=== PATIENT | male | born 1965 | race Caucasian/White ===

== ENCOUNTER 2017-03-04 10:10 | Inpatient (IN) | payer OTHER ==
--- NOTE | ~2017-03-04 | HP ---
Unit #: [id number] #: [id number] Patient: TANIA RANGEL [id number] [address] [address] [id number] MR#: [id number] NAME: TANIA RANGEL. ROOM: 28152 Age: 51 Sex: M Admission Date: 03/04/2017 : 1965 Attending Physician: Marina Lambert M.D. HISTORY AND PHYSICAL CHIEF COMPLAINT Abscess to left buttock. HISTORY OF PRESENT ILLNESS The patient is a 51-year-old male with a history of diabetes and noncompliance with medications who presented to the emergency room with an abscess to the left buttock. The patient stated that he has been having boils in the past that rupture and then go away within two days. However, this time, the patient had a boil that ruptured four days ago, and it has been gradually worsening to the point that he is having a lot of pain, swelling, and tenderness, which made him come to the hospital. The patient is not on any medication for diabetes. The patient was diagnosed with diabetes 14 years ago. He took metformin twice a day for two years, and then he stopped taking it. The patient denies any history of MRSA or any history of drainage in the past. He denies any fever, chills, nausea, or vomiting. PAST MEDICAL HISTORY Diabetes. PAST SURGICAL HISTORY None. HOME MEDICATIONS None. ALLERGIES Penicillin and latex. SOCIAL HISTORY He stated he stopped smoking three years ago. He drinks half of a quart of alcohol each day. He denies any illicit drug abuse. FAMILY HISTORY Diabetes. REVIEW OF SYSTEMS A 14-point review of systems was performed and only pertinent positive findings are as described above. The remaining are negative. PHYSICAL EXAMINATION GENERAL: Patient is lying in bed not in acute distress. VITAL SIGNS: Temperature 98.3, pulse 80, respiratory rate 16, blood pressure 127/77, and saturating 100% on room air. Unit #: [id number] #: [id number] Patient: TANIA RANGEL HEENT: Head atraumatic, normocephalic. Pupils equal, round, and reactive to light and accommodation. Extraocular movements are intact. Dry mucous membranes. NECK: Supple. LUNGS: Decreased air entry at the bases. HEART: Regular rate and rhythm. ABDOMEN: Soft. Positive bowel sounds. EXTREMITIES: No cyanosis, no clubbing. BUTTOCKS: Patient has large surrounding indurated cellulitis with minimal point of fluctuation at the left buttock draining minimal purulent drainage. NEUROLOGIC: Alert, awake, and oriented. No gross focal motor deficit. DIAGNOSTIC STUDIES LABORATORY: WBC 15.8, hemoglobin 13.6, hematocrit 41.2, and platelets 239,000. Sodium 134, potassium 3.5, chloride 98, bicarb 23, glucose 260, BUN 16, and creatinine 0.7. ASSESSMENT 1. Abscess of the left buttock. 2. Cellulitis. 3. Uncontrolled diabetes. 4. Sepsis. PLAN Admit the patient to inpatient with telemetry. Patient will be started on IV antibiotics with clindamycin 300 IV q.8. Patient will have Accu-Cheks a.c. and at bedtime and continue with low-dose sliding scale. Patient will get IV fluids with normal saline at 100 mL/hour. Patient will be evaluated by [facility], and Dr. Vargas is present at the time of evaluating the patient. Will follow the recommendations. DVT prophylaxis. Tobacco cessation. Further recommendations will follow. Dictated by Lucía Reilly TD: 03/04/2017 15:30 JOB #: [id number] HISTORY AND PHYSICAL Page 1 of 1 X MARINA LAMBERT MD X HISTORY AND PHYSICAL
--- NOTE | ~2017-03-04 | DS ---
Unit #: [id number] #: [id number] Patient: TANIA RANGEL [id number] [address] [place], [place] [address] [id number] MR#: [id number] NAME: TANIA RANGEL. ROOM: 239 Age: 51 Sex: M Admission Date: 03/04/2017 : 1965 Discharge Date: 03/07/2017 Attending Physician: Chilo Arnold M.D. Primary Care Physician: No Primary Care Physician DISCHARGE SUMMARY REASON FOR ADMISSION Right buttock abscess/cellulitis. Sepsis present on admission. HISTORY OF PRESENT ILLNESS/HOSPITAL COURSE The patient is a very pleasant, 51-year-old male who presented secondary to right buttock pain and/or cellulitis. Upon initial evaluation and exam, it was noted he had a fairly large abscess, necrotic in nature over his buttock area. Subsequently, we admitted the patient, placed him on med/surg floor. Consultation was placed to [facility]. Decision was made for incision, drainage, as well as debridement of the abscess of the right buttock area. He was initially placed on IV antibiotics on the initial part of his hospital stay. Please see their procedure note for complete details. Postoperatively, he underwent routine dressing change as well as routine packing. Surgical Services have seen and evaluated the patient and felt as though he is stable for discharge from their standpoint. At the rehab, Dakin b.i.d. dressings were recommended with appropriate packing. Office appointment at the wound clinic at [place] in approximately 10 to 14 days. In regards to the patient's prior history of diabetes, his hemoglobin A1C this hospital admission was 10.9%. He states that secondary to lack of insurance, he was unable to afford many of his medications. Therefore, at the time of discharge, we resumed Amaryl, Metformin as well as Januvia. His blood sugars have decreased significantly. We also had Nutrition come evaluate and provide diabetic teaching while here. In regards to his antibiotic regimen, ID Services were consulted. [facility] saw and evaluated the patient. His antibiotics at the time of discharge are yet to be determined by their service. Once, we have final recommendations from ID for antibiotic regimen, the patient will be transitioned to rehab later this afternoon. FINAL DISCHARGE DIAGNOSIS 1. Right buttock abscess status post I and D. 2. Diabetes poorly controlled. Hemoglobin A1C 10.9%. 3. Anemia. Baseline hemoglobin 11.4. FINAL DISCHARGE MEDICATIONS 1. Lortab 7.5/325 mg one tablet p.o. q.4 p.r.n. #30. 2. Amaryl 2 mg p.o. b.i.d. with meals. Unit #: [id number] #: [id number] Patient: TANIA RANGEL 3. Januvia 50 mg p.o. daily. 4. Metformin 500 mg p.o. b.i.d. 5. Protonix 40 mg p.o. daily. Please note antibiotics will be determined by Infectious Disease Services after they see and evaluate the patient later this afternoon. DISCHARGE DISPOSITION To rehab. DISCHARGE CONDITION Stable. Dictated by... Chilo Arnold M.D. MARIAMA/anusha TD: 03/07/2017 12:21 JOB #: [id number] DISCHARGE SUMMARY Page 1 of 1 X Chilo Arnold MD X DISCHARGE SUMMARY
--- NOTE | ~2017-03-04 | OR ---
Unit #: [id number] #: [id number] Patient: TANIA RANGEL [id number] [address] [place], [place] [address] [id number] MR#: [id number] NAME: TANIA RANGEL. ROOM: 321 Date of Procedure: 03/04/2017 Admission Date: 03/04/2017 Surgeon: Jeff Vargas M.D. : 1965 Attending Physician: Chilo Arnold M.D. OPERATIVE REPORT PREOPERATIVE DIAGNOSIS Necrotic abscess, right buttock. POSTOPERATIVE DIAGNOSIS Necrotic abscess, right buttock. PROCEDURES PERFORMED Incision and drainage of necrotic abscess, right buttock with sharp excisional debridement of skin and subcutaneous tissue 10 x 15 cm area. ANESTHESIA General LMA anesthesia. FINDINGS The patient had necrotic skin and subcutaneous tissue and a 10 x 15 cm area of the right buttock. This was sharply debrided back to viable tissue. SPECIMENS Sent to microbiology and pathology. COMPLICATIONS None apparent. CONDITION The patient tolerated the procedure well. INDICATIONS FOR PROCEDURE The patient is a 51-year-old white male, who presented with a history of diabetes. He presented with an abscess of the right buttock for the last 5 days. He has obvious necrosis of the skin. He presents at this time for incision, drainage, and debridement of the right buttock abscess. DESCRIPTION OF PROCEDURE After obtaining informed consent as well as receiving scheduled antibiotics, the patient was brought to the operating room and after adequate general LMA anesthesia was obtained, he was very carefully placed into the lithotomy position using candy-cane stirrups. All extremities were manipulated very carefully. His buttocks and perineum were prepped and draped in a sterile fashion. An incision was made into the necrotic tissue. A large amount of purulent material was evacuated. The Unit #: [id number] #: [id number] Patient: TANIA RANGEL subcutaneous tissues and skin were clearly necrotic. An incision was made circumferentially around the necrotic area with a scalpel. It was taken down through skin and subcutaneous tissues with a scalpel. There was necrotic tissue present and this was sharply debrided circumferentially to viable tissue. Hemostasis was obtained with the Bovie. The wound was irrigated and was packed with a Betadine-soaked Kerlix. A dry dressing was applied followed by an ABD pad and mesh panties. Needle counts, sponge counts, and instrument counts were all correct as reported by the scrub nurse x2. The patient went from the operating room to recovery room in stable condition. Dictated by... Lucaí Paredes/earle TD: 03/05/2017 04:54 JOB #: [id number] CC: [facility] OPERATIVE REPORT Page 1 of 1 X Jeff Vargas MD X PROCEDURE OPERATIVE NOTE
--- NOTE | ~2017-03-04 | CO ---
Unit #: [id number] #: [id number] Patient: TANIA RANGEL [id number] [address] [place], [place] [address] [id number] MR#: [id number] NAME: TANIA RANGEL ROOM: 321 Age: 51 Sex: M Admission Date: 03/04/2017 : 1965 Attending Physician: Chilo Arnold M.D. Primary Care Physician: Primary Care Physician No Consultation Date: 03/04/2017 CONSULTATION REPORT REASON FOR CONSULTATION Right buttock abscess. Thank you very much for asking us to see Mr. Rangel. HISTORY OF PRESENT ILLNESS He is a 51-year-old white male. Five days ago, he developed a painful area of his right buttock. It became increasingly painful and erythematous. He came to the emergency room for evaluation. He was found to have a right buttock abscess. He denies any GI bleeding. No or pulmonary symptoms. His weight has been stable and his appetite has been good. He presents at this time for further evaluation and treatment. ALLERGIES Penicillin and latex. MEDICATIONS None. PAST SURGICAL HISTORY None. PAST MEDICAL HISTORY Diabetes. SOCIAL HISTORY No tobacco or alcohol use. REVIEW OF SYSTEMS Negative except for above. IMMUNIZATION STATUS Unknown. FAMILY HISTORY Noncontributory. PHYSICAL EXAMINATION GENERAL: Well-developed, well-nourished white male, in no apparent distress. VITAL SIGNS: Afebrile. Vital signs stable. NECK: Supple. No thyromegaly or adenopathy. BACK: No CVA or spinous tenderness. Unit #: [id number] #: [id number] Patient: TANIA RANGEL HEENT: Sclerae not icteric. Extraocular movements are intact. ABDOMEN: Flat, soft, nontender. EXTREMITIES: No calf tenderness. No erythema. BUTTOCK: Examination of his right buttocks reveals a necrotic abscess with erythema and induration. IMPRESSION A 51-year-old white male with a necrotic abscess of the right buttock. We have recommended incision, drainage, and debridement. All the risks and benefits have been fully explained to the patient in detail including the risk of bleeding, infection, additional surgery, as well as other risks. He understands completely and requests to proceed. Dictated by... Lucía Paredes/earle TD: 03/05/2017 05:04 JOB #: [id number] CC: [facility] CONSULTATION REPORT Page 1 of 1 X Jeff Vargas MD X CONSULTATION REPORT
[~2017-03-04 10:10] MED LIST: CIPRO PO; LORTAB 7.5-5001 TAB PO; METFORMIN HCL500 M1 PO
[2017-03-04 12:10] LABS: BASOPHIL% 0.3 % (0-2.5); EOSINOPHIL# 0.1 X10e3 (0-0.7); EOSINOPHIL% 0.7 % (0.0-7.0); HEMATOCRIT 41.2 % (38.0-50.0); HEMOGLOBIN 13.6 gm/dL (13.0-16.0); LYMPHOCYTE# 1.1 X10e3 (1.0-3.5); LYMPHOCYTE% 6.9 % (17.0-45.0); MEAN CELL VOLUME 92.1 FL (83-96); MEAN CORPUSCULAR HEMOGLOBIN 30.3 PG (28-34); MEAN CORPUSCULAR HGB CONC 32.9 g/dL (30-36); MEAN PLATELET VOLUME 8.3 FL (6.5-11.5); MONOCYTE# 1.6 X10e3 (0-1.0); MONOCYTE% 10.1 % (3.0-12.0); PLATELET COUNT 239 X10e3 (140-420); RED BLOOD COUNT 4.48 X10e (3.90-5.60); WHITE BLOOD COUNT 15.8 X10e3 (4.0-10.5)
[2017-03-04 12:16] LABS: DIFF IND YES
[2017-03-04 12:31] LABS: BUN/CREATININE RATIO 22.85; CALCIUM SERUM 8.5 mg/dL (8.4-10.2); CREATININE SERUM 0.7 mg/dL (0.6-1.4); GLOM FILT RATE Estimated 109.3 mL/min (>60); POTASSIUM 3.5 mmol/L (3.5-5.1)
[2017-03-04 13:19] LABS: PLATELET ESTIMATE NORMAL (NORMAL); TOXIC GRANULATION SL
[2017-03-04 13:20] LABS: HYPERSEGMENTED POLYS PRESENT; RBC NORMAL YES
[2017-03-04] MEDS ORDERED: NO MEDICATIONS (13:27)
[2017-03-04] MEDS ORDERED: PATIENT'S PHARMACY (13:27)
[2017-03-05 04:47] LABS: HEMATOCRIT 34.6 % (38.0-50.0); HEMOGLOBIN 11.4 gm/dL (13.0-16.0); MEAN CORPUSCULAR HEMOGLOBIN 30.5 PG (28-34); MEAN CORPUSCULAR HGB CONC 32.8 g/dL (30-36); MEAN PLATELET VOLUME 8.4 FL (6.5-11.5); RED BLOOD COUNT 3.73 X10e (3.90-5.60); RED CELL DISTRIBUTION WIDTH 13.1 % (11.0-15.5); WHITE BLOOD COUNT 14.6 X10e3 (4.0-10.5)
[2017-03-05 05:37] LABS: CALCIUM SERUM 7.6 mg/dL (8.4-10.2); CREATININE SERUM 0.6 mg/dL (0.6-1.4); GLOM FILT RATE Estimated 116.5 mL/min (>60); POTASSIUM 3.8 mmol/L (3.5-5.1)
[2017-03-06 06:34] LABS: HEMATOCRIT 35.1 % (38.0-50.0); HEMOGLOBIN 11.6 gm/dL (13.0-16.0); MEAN CELL VOLUME 93.2 FL (83-96); MEAN CORPUSCULAR HGB CONC 33.2 g/dL (30-36); MEAN PLATELET VOLUME 8.4 FL (6.5-11.5); RED BLOOD COUNT 3.76 X10e (3.90-5.60); RED CELL DISTRIBUTION WIDTH 13.4 % (11.0-15.5); WHITE BLOOD COUNT 11.2 X10e3 (4.0-10.5)
[2017-03-06 07:24] LABS: CALCIUM SERUM 8.1 mg/dL (8.4-10.2); CREATININE SERUM 0.6 mg/dL (0.6-1.4); GLOM FILT RATE Estimated 116.5 mL/min (>60); POTASSIUM 3.8 mmol/L (3.5-5.1)
[2017-03-07 06:35] LABS: HEMATOCRIT 36.2 % (38.0-50.0); HEMOGLOBIN 11.8 gm/dL (13.0-16.0); MEAN CELL VOLUME 93.4 FL (83-96); MEAN CORPUSCULAR HEMOGLOBIN 30.5 PG (28-34); MEAN CORPUSCULAR HGB CONC 32.6 g/dL (30-36); MEAN PLATELET VOLUME 8.5 FL (6.5-11.5); RED BLOOD COUNT 3.87 X10e (3.90-5.60); RED CELL DISTRIBUTION WIDTH 13.1 % (11.0-15.5); WHITE BLOOD COUNT 9.7 X10e3 (4.0-10.5)
== END 2017-03-07 14:53 | DRG 854 ==
LOC: CFTX 10:10 → CED 10:10 → C3A PCU 13:20 → CEDOF 13:20 → C2A 13:20 → CEDOF 13:47 → CED 13:47 → C3A PCU 17:00 → CEDOF 17:00 → C3A PCU 03-05 08:19 → C2A 03-05 15:56
PROVIDERS: Emergency Medicine; Family Medicine; Internal Medicine; Surgery
PROC: 0JB90ZZ Excision of Buttock Subcutaneous Tissue and Fascia, Open Approach (ICD-10-PCS; principal; 2017-03-04 15:00)
DX: A41.9 Sepsis, unspecified organism (principal); L03.317 Cellulitis of buttock; E11.65 Type 2 diabetes mellitus with hyperglycemia; Z79.84 Long term (current) use of oral hypoglycemic drugs; D64.9 Anemia, unspecified; M19.90 Unspecified osteoarthritis, unspecified site; Z87.891 Personal history of nicotine dependence; Z88.0 Allergy status to penicillin; Z91.040 Latex allergy status; Z91.120 Patient's intentional underdosing of medication regimen due to financial hardship
CPT/HCPCS: 36415; 80048; 82947; 83036; 83605; 85025; 85027; 87040; 87070; 87075; 87205; 88304; 88312; 96365; 96366; 96375; 97165; 97535; 99284; J0696; J1650; J1815; J2250; J2270; J2405; J3010; J3370